=== PATIENT | female | born 1955 | race Caucasian/White ===

== ENCOUNTER 2018-10-16 19:36 | Emergency (ER) | payer OTHER ==
[~2018-10-16] VITALS: Ht 162.6 cm; Wt 58.7 kg
[2018-10-16 19:38] VITALS: BP 161/73
--- NOTE | 2018-10-16 20:39 | NUR ---
PT REFUSING ICE PACK AT THIS TIME.
--- NOTE | 2018-10-16 21:10 | NUR ---
EDT AT BEDSIDE TO SPLINT PT
--- NOTE | 2018-10-16 21:56 | NUR ---
pt splinted by EDT, [facility] intact s/p splint. splint examined by edpa. pt a&o, resps even and unlabored, nadn at dc. pt educated regarding norco rx. pt amb to dc desk with steady gait, nadn at dc.
== END 2018-10-16 21:57 | disposition home or self-care (01) ==
LOC: ED 21:15
DX: S52.501A Unspecified fracture of the lower end of right radius, initial encounter for closed fracture (principal); W00.0XXA Fall on same level due to ice and snow, initial encounter; Y93.89 Activity, other specified; Y92.89 Other specified places as the place of occurrence of the external cause; Y99.8 Other external cause status
CPT/HCPCS: 29125; 99283